=== PATIENT | male | born 1950 | race Caucasian/White ===

== ENCOUNTER 2020-04-05 09:39 | Outpatient (CLI) | payer MEDICARE, OTHER, SELFPAY | END 2020-04-05 09:40 | disposition home or self-care (01) | LOC: ANHAUDIO 09:41 | PROVIDERS: PCP Family Medicine; Visit Provider Family Medicine | DX: H90.71 Mixed conductive and sensorineural hearing loss, unilateral, right ear, with unrestricted hearing on the contralateral side (principal); H90.42 Sensorineural hearing loss, unilateral, left ear, with unrestricted hearing on the contralateral side | CPT/HCPCS: 92557; 92567 ==

== ENCOUNTER → 2021-07-09 11:04 | Outpatient (CLI) | payer MEDICARE, OTHER, SELFPAY ==
--- NOTE | ~2021-07-09 | XR_ITS ---
XR cervical spine 4-5V DATE: 07/09/2021 11:42 INDICATION: Neck pain TECHNIQUE: Standing AP, open-mouth, odontoid, lateral views COMPARISON: None FINDINGS: There is diffuse osteopenia. There is moderately severe degenerative disc disease and mild retrolisthesis at C5-6. There is modera te degenerative disc disease at C6-7. There is uncovertebral joint spurring primarily at C5-6 and C6-7. C1 and C2 are normally aligned and the odontoid process is intact. No fracture or dislocation or lock ed facet or prevertebral soft tissue swelling. IMPRESSION: Degenerative disc disease and uncovertebral joint spurring primarily at C5-6 and C6-7 Reviewed, dictated and finalized at location B. IMPRESSION: Degenerative disc disease and uncovertebral joint spurring primaril y at C5-6 and C6-7
== END ==
PROVIDERS: PCP Family Medicine; Visit Provider Physician Assistant
DX: M47.812 Spondylosis without myelopathy or radiculopathy, cervical region (principal)
CPT/HCPCS: 72050